=== PATIENT | female | born 1950 | race Two or more races ===

== ENCOUNTER 2016-08-31 09:54 | Emergency (ER) | payer MEDICARE, OTHER ==
[~2016-08-31] VITALS: Ht 160 cm; Wt 77.0 kg
[~2016-08-31 09:54] MED LIST: ASPI81TA3 PO; CETI-240 PO; HYDR-3498 PO; IBUP-1542 PO; LEVO500S PO; LISI40TA9 PO; SIMV10TA6 PO
[2016-08-31 10:01] VITALS: Ht 160 cm; Wt 77.0 kg
[2016-08-31 11:50] LABS: ADD SCAN DIFF NO
[2016-08-31 11:51] LABS: BASOPHILS % 0.4 % (0.0-2.0); EOSINOPHILS # 0.2 10^3/ul (0.0-0.5); EOSINOPHILS % 3.1 % (0.0-7.0); HEMATOCRIT 37.5 % (37.0-47.0); HEMOGLOBIN 12.9 g/dl (12.0-16.0); LYMPHOCYTES # 2.5 10^3/ul (0.8-2.9); LYMPHOCYTES % 46.4 % (15.0-51.0); MEAN CORPUSCULAR HEMOGLOBIN 30.8 pg (29.0-33.0); MEAN CORPUSCULAR HGB CONC 34.4 g/dl (32.0-37.0); MEAN CORPUSCULAR VOLUME 89.5 fl (82.0-101.0); MEAN PLATELET VOLUME 10.9 fl (7.4-10.4); MONOCYTE # 0.4 10^3/ul (0.3-0.9); MONOCYTES % 7.5 % (0.0-11.0); NEUTROPHIL # 2.3 10^3/ul (1.6-7.5); NEUTROPHILS % 42.4 % (39.0-77.0); PLATELET COUNT 215 10^3/UL (140-415); RED BLOOD COUNT 4.19 10^6/ul (4.20-5.40); RED CELL DISTRIBUTION WIDTH 13.1 % (11.5-14.5); WHITE BLOOD COUNT 5.5 10^3/ul (4.8-10.8)
[2016-08-31 12:05] LABS: ALBUMIN 4.7 g/dl (3.3-4.9)
[2016-08-31 12:06] LABS: POTASSIUM 4.1 mmol/L (3.5-5.1)
[2016-08-31 12:08] LABS: ALBUMIN/GLOBULIN RATIO 1.34; BILIRUBIN,INDIRECT 0.4 mg/dl (0-1.1); BILIRUBIN,TOTAL 0.4 mg/dl (0.2-1.3); CALCIUM 9.5 mg/dl (8.4-10.2); CREATININE 0.79 mg/dl (0.44-1.00); TOTAL PROTEIN 8.2 g/dl (6.1-8.1)
[2016-08-31 12:28] LABS: ADD UMIC YES; URINE BILIRUBIN (Dip) NEGATIVE (NEGATIVE); URINE BLOOD (Dip) TRACE (NEGATIVE); URINE COLOR LT. YELLOW (YELLOW); URINE GLUCOSE (Dip) NEGATIVE (NEGATIVE); URINE KETONES (Dip) NEGATIVE (NEGATIVE); URINE LEUKOCYTE ESTERASE (Dip) NEGATIVE (NEGATIVE); URINE NITRITE (Dip) NEGATIVE (NEGATIVE); URINE TOTAL PROTEIN (Dip) NEGATIVE (NEGATIVE); URINE UROBILINOGEN (Dip) 0.2 E.U./dL (0.1-1.0)
[2016-08-31] MEDS ORDERED: KETOROLAC 30 MG INJ IV STA (12:32)
--- NOTE | 2016-08-31 12:53 | ERD ---
ER Documentation Chief Complaint Date/Time DATE: 08/31/16 TIME: 12:51 Chief Complaint CAME IN VIA INTAKE DUE TO LOWER BACK PAIN WITH BILATERAL LEGS TINGLING HPI This is a 66-year-old female who presents to the emergency room for evaluation of lower back pain. The patient states that she has had lower back pain for approximately 1 weeks duration. She denies any trauma associated with this. The patient states that that she is not having any urinary retention or urinary frequency or urgency. She states that her back pain is worse when she bends forward. She denies any numbness or tingling in her lower extremities. ROS All systems reviewed and are negative except as per history of present illness. Medications Home Meds Reported Medications Simvastatin (Simvastatin) 10 Mg Tablet, 10 MG PO QHS, #30 TAB 10/18/15 Aspirin* (Aspirin* Chew) 81 Mg Tab.chew, 81 MG PO DAILY, TAB.CHEW 10/18/15 Cetirizine Hcl* (Cetirizine Hcl*) 10 Mg Tablet, 10 MG PO DAILY, #30 TAB 10/18/15 Lisinopril* (Lisinopril*) 40 Mg Tablet, 40 MG PO DAILY, #30 TAB 10/18/15 Discontinued Reported Medications Levofloxacin (Levofloxacin) 500 Mg/20 Ml Solution, 500 MG PO DAILY, ML 10/18/15 Discontinued Scripts Ibuprofen* (Motrin*) 600 Mg Tab, 600 MG PO Q6, #30 TAB Prov:DESTINEE,ZEYAD C 10/18/15 Hydrocodone Bit-Acetaminophen* ([place]*) 5-325 Mg Tab, 1 TAB PO Q6 Y for PAIN, # 20 TAB Prov:ZEYAD FELIPE C 10/18/15 Allergies Allergies: Coded Allergies: No Known Allergy (Unverified , 10/18/15) PMhx/Soc Anesthesia Reaction: No Hx Neurological Disorder: Yes Hx Respiratory Disorders: Yes Hx Cardiac Disorders: Yes Hx Psychiatric Problems: Yes Hx Miscellaneous Medical Probl: No (HTN, high cholesterol) Hx Alcohol Use: No Hx Substance Use: No Hx Tobacco Use: No Physical Exam Vitals Vital Signs Date Time Temp Pulse Resp B/P Pulse Ox O2 Delivery O2 Flow Rate FiO2 08/31/16 10:01 98.2 70 16 140/98 99 Physical Exam INITIAL VITAL SIGNS: Reviewed by me GENERAL: The patient is well developed and appropriate for usual state of health in no apparent distress HEENT: Pupils equal, round, and reactive to light. EOMI. There is no scleral icterus. NECK: C-spine is soft and supple, there is no meningismus. There is no cervical lymphadenopathy. LUNGS: Clear to auscultation bilaterally. There are no rales, wheezes or rhonchi. HEART: Regular rate and rhythm, no murmurs, clicks, rubs or gallops. ABDOMEN: Soft, non-tender, non-distended. There are bowel sounds in all four quadrants. No rebound or guarding. EXTREMITIES: There is no peripheral cyanosis or edema. No focal swelling or erythema. NEUROLOGICAL: The patient moves all four extremities with 5/5 strength. Cranial nerves II - XII are intact. Normal gait. Alert and oriented SKIN: There is no apparent rash or petechiae. Musculoskeletal: Tender to palpation of the paraspinal muscles of the lumbar spine from L2-L5 bilaterally. No CVAT HEME/LYMPHATIC: There is no evidence of excessive bruising or lymphedema. PSYCHIATRIC: The patient does not appear anxious or depressed. Result Diagram: 08/31/16 1110 08/31/16 1110 Results 24 hrs Laboratory Tests Test 08/31/16 11:10 08/31/16 11:18 White Blood Count 5.510^3/ul Red Blood Count 4.1910^6/ul Hemoglobin 12.9g/dl Hematocrit 37.5% Mean Corpuscular Volume 89.5fl Mean Corpuscular Hemoglobin 30.8pg Mean Corpuscular Hemoglobin Concent 34.4g/dl Red Cell Distribution Width 13.1% Platelet Count 98391^3/UL Mean Platelet Volume 10.9fl Neutrophils % 42.4% Lymphocytes % 46.4% Monocytes % 7.5% Eosinophils % 3.1% Basophils % 0.4% Nucleated Red Blood Cells % 0.0/100WBC Neutrophils # 2.310^3/ul Lymphocytes # 2.510^3/ul Monocytes # 0.410^3/ul Eosinophils # 0.210^3/ul Basophils # 0.010^3/ul Nucleated Red Blood Cells # 0.010^3/ul Sodium Level 141mmol/L Potassium Level 4.1mmol/L Chloride Level 103mmol/L Carbon Dioxide Level 24mmol/L Anion Gap 18 Blood Urea Nitrogen 14mg/dl Creatinine 0.79mg/dl Glucose Level 97mg/dl Calcium Level 9.5mg/dl Total Bilirubin 0.4mg/dl Direct Bilirubin 0.00mg/dl Indirect Bilirubin 0.4mg/dl Aspartate Amino Transf (AST/SGOT) 29IU/L Alanine Aminotransferase (ALT/SGPT) 25IU/L Alkaline Phosphatase 59IU/L Total Protein 8.2g/dl Albumin 4.7g/dl Globulin 3.50g/dl Albumin/Globulin Ratio 1.34 Lipase 63U/L Urine Color LT. YELLOW Urine Clarity CLEAR Urine pH 6.0 Urine Specific [place] <=1.005 Urine Ketones NEGATIVE Urine Nitrite NEGATIVE Urine Bilirubin NEGATIVE Urine Urobilinogen 0.2 E.U./dL Urine Leukocyte Esterase NEGATIVE Urine Microscopic RBC Pending Urine Microscopic WBC Pending Urine Hemoglobin TRACE Urine Glucose NEGATIVE% Urine Total Protein NEGATIVE Current Medications Medications (Trade) Dose Ordered Sig/Justin Route PRN Reason Start Time Stop Time Status Last Admin Dose Admin Ketorolac Tromethamine (Toradol) 30 mg ONCE STAT IV 08/31/16 12:32 08/31/16 12:33 DC 08/31/16 12:42 Procedures/MDM This 66-year-old female presents to the emergency room for evaluation of lower back pain. When I evaluated this patient she no focal neurological deficits. She did have tenderness to palpation of the paraspinal muscles of the lumbar spine. Urinalysis does not reveal any infection. Lab work does not reveal any acute abnormalities. This patient has no signs of cauda equina. She has no numbness or tingling in her lower extremities, no urinary retention or urinary incontinence. Patient's pain is reproducible palpation of the muscles. The patient was given Toradol, and pulmonary evaluation she does say she is feeling slightly better. This patient is ambulate without difficulty and in no acute distress. She will be discharged home with a prescription for Naprosyn for acute lumbar strain. I advised her to return immediately to the ER if she were to develop any fevers, difficulty urinating, or numbness or tingling in her lower extremities and she verbalized understanding. Patient presents today with atraumatic back pain. Although infection, malignancy, GI, , and vascular causes have been considered in this patient, the patient's clinical presentation is most consistent with a musculoskeletal cause. There is neither evidence of any acute neurologic damage, nor of loss of function and thus, advanced imaging studies have been deferred. Patient will be treated conservatively with appropriate pain control precautionary discharge instructions provided. Departure Diagnosis: Primary Impression: Strain of lumbar paraspinous muscle Additional Impression: Back pain Condition: Stable ABDULAZIZ FELTON DO Aug 31, 2016 12:53
[2016-08-31] MEDS ORDERED: NAPR-260 PO (12:55)
[2016-08-31 13:07] VITALS: BP 114/63; PULSE 70; RESP 17; TEMP 97.9
== END 2016-08-31 13:08 | disposition home or self-care (01) ==
LOC: E/R 09:54
DX: S39.012A Strain of muscle, fascia and tendon of lower back, initial encounter (principal); I10 Essential (primary) hypertension; X58.XXXA Exposure to other specified factors, initial encounter; Y92.9 Unspecified place or not applicable; Z79.82 Long term (current) use of aspirin
CPT/HCPCS: 36415; 80053; 81001; 83690; 85025; 96374; 99284; J1885; 81003

== ENCOUNTER → 2016-09-11 | Outpatient (CLI) | payer MEDICARE, MEDICAID ==
[~2016-09-11] MED LIST changes: -HYDR-3498 PO; -IBUP-1542 PO; -LEVO500S PO; +NAPR-260 PO
== END | disposition home or self-care (01) ==
LOC: HKI 08:55
PROVIDERS: ATTEND Orthopaedic Surgery
DX: M17.12 Unilateral primary osteoarthritis, left knee (principal); M25.562 Pain in left knee
CPT/HCPCS: G0463

== ENCOUNTER → 2016-10-09 | Outpatient (CLI) | payer MEDICARE, OTHER | END | disposition home or self-care (01) | LOC: HKI 09:22 | PROVIDERS: ATTEND Orthopaedic Surgery | DX: M25.562 Pain in left knee (principal); M17.12 Unilateral primary osteoarthritis, left knee | CPT/HCPCS: 20610; G0463 ==

== ENCOUNTER 2016-10-17 19:35 | Emergency (ER) | payer MEDICARE, OTHER ==
[~2016-10-17] VITALS: Ht 160 cm; Wt 76.5 kg
[2016-10-17 19:38] VITALS: Ht 160 cm; Wt 76.5 kg
[2016-10-17] MEDS ORDERED: KETOROLAC 30 MG INJ IM STA (21:01)
[2016-10-17] MEDS ORDERED: NAPR-260 PO (22:13)
[2016-10-17 22:26] VITALS: BP 126/75; PULSE 69; RESP 18; TEMP 98.2
--- NOTE | 2016-10-17 23:17 | ERD ---
ER Documentation Chief Complaint Date/Time DATE: 10/17/16 TIME: 23:14 Chief Complaint back pain x 3 months, denies injury HPI 66-year-old female patient with a past medical history of chronic back pain and degenerative disc disease with bulging disks presents to the ED complaining of the same back pain that has been occurring for the last 2 weeks but worsened 1 week ago. Patient obtained a MRI on September 22, 2016 and it shows no mass or cysts. No fractures. There were broad-based protrusions of L4-L5 with moderate right neural foraminal narrowing and impingement of L4 nerve root. L5- S1 has severe bilateral facet arthropathy creates moderate left lateral recess stenosis may be source of impingement of the S1 nerve root. Patient was given naproxen by her PCP and she stated that she ran out of this prescription. Reports that Toradol usually works for her pain. Denies any saddle anesthesia, fever, numbness or tingling, urine or bowel incontinence, urinary retention, abdominal pain, nausea, vomiting, diarrhea. ROS All systems reviewed and are negative except as per history of present illness. Medications Home Meds Active Scripts Naproxen* (Naprosyn*) 500 Mg Tablet, 500 MG PO DAILY Y for PAIN AND/OR INFLAMMATION, #20 TAB Prov:ROXY HILL PA-C 10/17/16 Naproxen* (Naprosyn*) 500 Mg Tablet, 500 MG PO BID for 10 Days, TAB Prov:ABDULAZIZ FELTON DO 08/31/16 Reported Medications Simvastatin (Simvastatin) 10 Mg Tablet, 10 MG PO QHS, #30 TAB 10/18/15 Aspirin* (Aspirin* Chew) 81 Mg Tab.chew, 81 MG PO DAILY, TAB.CHEW 10/18/15 Cetirizine Hcl* (Cetirizine Hcl*) 10 Mg Tablet, 10 MG PO DAILY, #30 TAB 10/18/15 Lisinopril* (Lisinopril*) 40 Mg Tablet, 40 MG PO DAILY, #30 TAB 10/18/15 Allergies Allergies: Coded Allergies: No Known Allergy (Unverified , 10/18/15) PMhx/Soc Anesthesia Reaction: No Hx Neurological Disorder: Yes Hx Respiratory Disorders: Yes Hx Cardiac Disorders: Yes Hx Psychiatric Problems: Yes Hx Miscellaneous Medical Probl: No (HTN, high cholesterol, chronic back pain) Hx Alcohol Use: No Hx Substance Use: No Hx Tobacco Use: No Smoking Status: Never smoker Physical Exam Vitals Vital Signs Date Time Temp Pulse Resp B/P Pulse Ox O2 Delivery O2 Flow Rate FiO2 10/17/16 22:26 98.2 69 18 126/75 97 Room Air 10/17/16 19:38 97.9 64 20 162/76 98 Physical Exam Const: [id number], well-nourished. In no acute distress. Head: Atraumatic, normocephalic Eyes: Normal Conjunctiva without injection. No purulent discharge. ENT: Normal external ear, nose. Moist oropharynx without tonsillar exudates. Non -erythematous pharynx. Uvula midline. No drooling. No trismus. Neck: No cervical midline tenderness. Full range of motion. No meningismus. No cervical lymphadenopathy. No JVD. Resp: Clear to auscultation bilaterally. No wheezing, rhonchi, rales, or crackles. No accessory muscle use. No retractions. Cardio: Regular rate and rhythm. No murmurs, rubs or gallops. Abd: Soft, nontender, non distended. Normal bowel sounds. No palpable masses. No rebound tenderness. No guarding. Negative McBurney's point. Negative psoas sign. Negative obturator sign. Skin: No petechiae or rashes Back: No midline tenderness. Tenderness palpation of the left lumbar muscles. No CVA tenderness. Ext: No cyanosis, or edema. Neur: Awake and alert. Normal gait. Normal coordination. Psych: Normal Mood and Affect Results 24 hrs Current Medications Medications (Trade) Dose Ordered Sig/Justin Route PRN Reason Start Time Stop Time Status Last Admin Dose Admin Ketorolac Tromethamine (Toradol) 30 mg ONCE STAT IM 10/17/16 21:01 10/17/16 21:02 DC 10/17/16 21:09 Procedures/MDM This is a 66-year-old female patient with no significant past medical history presents to the ED complaining of chronic back pain that worsened 1 week ago. Patient is afebrile nontoxic appearing. Patient has normal vital signs. Patient's blood pressure was noted to be 162/76. Patient's blood pressure was elevated (>120/80) but appears stable without evidence of hypertension emergency or urgency. The patient was counseled about the risks of hypertension and urged to pursue outpatient monitoring and therapy within a week with their primary care physician. MRI shows degenerative disc disease and disc protrusions with impingement of nerve roots. Patient's pain is likely due to the same pain as she does obtain this MRI on September 22, 2016 Patient was given Toradol here in the ED with improvement of her pain. There is no suspicion for acute fractures or dislocations. Patient is ambulating here in the ED without difficulty. Denies saddle anesthesia, numbness or tingling, urine or bowel incontinence, weakness. Low suspicion for cauda equina syndrome, cord compression, nephrolithiasis, aortic aneurysm, aortic dissection, epidural abscess, spinal hematoma, malignancy, pyelonephritis, or other emergent conditions. Discharge medications: Naproxen Follow up with primary care physician in 1-2 days. Instructed patient to return to the ED sooner for any worsening symptoms. Patient's questions were answered. Patient understood and agreed with discharge plan. Patient discharged stable. Departure Diagnosis: Primary Impression: Back pain Back pain location: low back pain Chronicity: chronic Back pain laterality : unspecified Sciatica presence: unspecified whether sciatica present Qualified Code: M54.5 - Chronic low back pain, unspecified back pain laterality , with sciatica presence unspecified Condition: Stable Patient Instructions: Back Pain (Acute Or Chronic) Referrals: COMMUNITY CLINICS YOU HAVE RECEIVED A MEDICAL SCREENING EXAM AND THE RESULTS INDICATE THAT YOU DO NOT HAVE A CONDITION THAT REQUIRES URGENT TREATMENT IN THE EMERGENCY DEPARTMENT. FURTHER EVALUATION AND TREATMENT OF YOUR CONDITION CAN WAIT UNTIL YOU ARE SEEN IN YOUR DOCTORS OFFICE WITHIN THE NEXT 1-2 DAYS. IT IS YOUR RESPONSIBILITY TO MAKE AN APPOINTMENT FOR FOLOW-UP CARE. IF YOU HAVE A PRIMARY DOCTOR --you should call your primary doctor and schedule an appointment IF YOU DO NOT HAVE A PRIMARY DOCTOR YOU CAN CALL OUR PHYSICIAN REFERRAL HOTLINE AT IF YOU CAN NOT AFFORD TO SEE A PHYSICIAN YOU CAN CHOSE FROM THE FOLLOWING [facility] CL[facility] [address] [facility] [address] [facility] [address] [facility] [address] [facility] [address] [facility]. [facility] [address] [facility] [facility] YOU HAVE RECEIVED A MEDICAL SCREENING EXAM AND THE RESULTS INDICATE THAT YOU DO NOT HAVE A CONDITION THAT REQUIRES URGENT TREATMENT IN THE EMERGENCY DEPARTMENT. FURTHER EVALUATION AND TREATMENT OF YOUR CONDITION CAN WAIT UNTIL YOU ARE SEEN IN YOUR DOCTORS OFFICE WITHIN THE NEXT 1-2 DAYS. IT IS YOUR RESPONSIBILITY TO MAKE AN APPOINTMENT FOR FOLOW-UP CARE. IF YOU HAVE A PRIMARY DOCTOR --you should call your primary doctor and schedule and appointment IF YOU DO NOT HAVE A PRIMARY DOCTOR YOU CAN CALL OUR PHYSICIAN REFERRAL HOTLINE AT . IF YOU CAN NOT AFFORD TO SEE A PHYSICIAN YOU CAN CHOSE FROM THE FOLLOWING [facility] INSTITUTIONS: [facility] [address] [place] [address] [facility] [address] [place] [address] [facility] + [facility] [address] [place] [address] [facility] URGENT C[facility]/SPECIALTIES Additional Instructions: Take Naproxen with food. Call your primary care doctor TOMORROW for an appointment during the next 1-2 days.See the doctor sooner or return here if your condition worsens before your appointment time - weakness, numbness and tingling of the groin area, unable to hold urination or bowel movements, unable to urinate, fever. ROXY HILL PA-C Oct 17, 2016 23:17 ROXY HILL PA-C Oct 17, 2016 23:17
== END 2016-10-17 22:27 | disposition home or self-care (01) ==
LOC: FTE 19:35
DX: M54.5 Low back pain (principal); I10 Essential (primary) hypertension; Z79.82 Long term (current) use of aspirin
CPT/HCPCS: 96372; J1885

== ENCOUNTER 2018-02-28 18:04 | Emergency (ER) | END 2018-02-28 21:02 | disposition left against medical advice (07) ==